=== PATIENT | male | born 1995 | race Caucasian/White ===

== ENCOUNTER 2018-06-27 18:08 | Emergency (ER) | payer OTHER ==
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
[2018-06-27 19:35] VITALS: BP 141/80
== END 2018-06-27 19:35 | disposition home or self-care (01) ==
DX: S00.83XA Contusion of other part of head, initial encounter (principal); S05.12XA Contusion of eyeball and orbital tissues, left eye, initial encounter; J34.89 Other specified disorders of nose and nasal sinuses; Y04.8XXA Assault by other bodily force, initial encounter